=== PATIENT | male | born 1945 | race Caucasian/White ===

== ENCOUNTER → 2016-11-17 | Outpatient (CLI) | payer MEDICARE, BC ==
[~2016-11-17] MED LIST: ASPIRIN325 MG PO; ASPIRIN81 MG PO; CARDIZEM60 MG PO; CENTRUM MEN'S1 EACH PO; CIALIS5 MG PO; DULCOLAX5 MG PO; FISH OIL1 GM PO; LUMIGAN 0.01%2.5 ML EYEBOTH; LUTEIN10 MG PO; MOBIC15 M1 PO; OXYCODONE HCL5 MG PO; PHILLIPS'400 MG/5 M PO; PRAVACHOL40 MG PO; PRILOSEC20 MG PO; REQUIP1 MG PO; SENNA S TABLET1 EACH PO; TUMS500 MG PO; TYLENOL325 MG PO; ULTRAM50 MG PO; VITAMIN D35000 UNIT PO
== END | disposition short-term general hospital (02) ==
LOC: CLORTH 08:06
DX: Z47.1 Aftercare following joint replacement surgery (principal); Z96.651 Presence of right artificial knee joint